=== PATIENT | female | born 1940 | race Caucasian/White ===

== ENCOUNTER 2017-04-18 09:09 | Inpatient (IN) | payer MEDICARE, MEDICAID ==
[~2017-04-18] VITALS: Ht 162.6 cm; Wt 55.0 kg
[~2017-04-18 09:09] MED LIST: ADV50250 IH; ALB0.5UD IH; ALBU8HFA PO; BENA5TAB2 PO; CLOP75TA35 PO; ESCI5TAB PO; FURO-150 PO; POTA10TA19 PO; SPIIN IH
[2017-04-18 09:40] LABS: BASOPHILS % (AUTO) 0.3 % (0-1); EOSINOPHILS % (AUTO) 0.6 % (0-6); HEMATOCRIT 41.6 % (35.0-45.0); LYMPHOCYTES # (AUTO) 0.5 X10'3 (1.1-4.8); LYMPHOCYTES % (AUTO) 9.6 % (21-51); MEAN CORPUSCULAR HEMOGLOBIN 32.2 PG (27.0-31.0); MEAN CORPUSCULAR HGB CONC 33.6 % (33.0-36.5); MEAN CORPUSCULAR VOLUME 96.1 FL (78-98); MEAN PLATELET VOLUME 8.6 FL (7.4-10.4); MONOCYTES # (AUTO) 0.6 X10'3 (0-0.9); MONOCYTES % (AUTO) 10.6 % (2-12); NEUTROPHILS # (AUTO) 4.3 X10'3 (1.8-7.7); NEUTROPHILS % (AUTO) 78.9 % (42-75); PLATELET COUNT 147 X10'3 (140-440); RED BLOOD COUNT 4.33 X10'6 (4.20-5.60); RED CELL DISTRIBUTION WIDTH 14.1 % (11.5-14.5); WHITE BLOOD COUNT 5.5 X10'3 (4.5-11.0)
[2017-04-18] MEDS ORDERED: methylPREDNISolone sod succ 125mg/2ml vial IV ONE (09:45)
[2017-04-18] MEDS ORDERED: furosemide 10 MG/1 ML 10ml inj IV ONE (09:45)
[2017-04-18 09:54] LABS: PARTIAL THROMBOPLASTIN TIME 28 SECONDS (22-32); PROTHROMBIN TIME 10.5 SECONDS (9.0-12.0)
[2017-04-18 10:11] LABS: ALANINE AMINOTRANSFERASE 39 U/L (12-78); ALBUMIN 3.3 G/DL (3.4-5.0); ALBUMIN/GLOBULIN RATIO 0.9 (1.1-1.5); ALKALINE PHOSPHATASE 53 IU/L (46-116); ANION GAP 0 (8-16); ASPARTATE AMINO TRANSFERASE 44 U/L (10-37); BILIRUBIN,TOTAL 0.7 MG/DL (0.1-1.0); BLOOD UREA NITROGEN 8 MG/DL (7-18); CHLORIDE 93 MMOL/L (99-107); GLUCOSE 109 MG/DL (70-104); POTASSIUM 4.6 MMOL/L (3.5-5.1); SODIUM 134 MMOL/L (135-145); TOTAL PROTEIN 6.8 G/DL (6.4-8.2); eGFR > 90 ML/MIN
[2017-04-18 10:14] LABS: TOTAL CARBON DIOXIDE 41.3 MMOL/L (24-32)
[2017-04-18 11:26] LABS: ABG BASE EXCESS 11.2 mmol/L (-2.0-3.0); ABG HCO3 39.9 mmol/L (22.0-26.0); ABG PCO2 (T) 72.8 mmHg (32.0-45.0); ABG PH (T) 7.357 (7.350-7.450); ABG PO2 (T) 82.5 mmHg (83-108); ALLEN'S TEST Positive; FCOHb 0.6 % (0.5-1.5); FLOW 4 L/min; FMetHb 0.1 % (0.3-1.12); FO2Hb 95.3 % (94-100); TOTAL HEMOGLOBIN 14.1 G/dl (12.0-16.0)
[2017-04-18] MEDS ORDERED: magnesium 4gm in 100ml NS 100 ML IV PRN (11:55)
[2017-04-18] MEDS ORDERED: acetaminophen 325mg tablet PO PRN (11:55)
[2017-04-18] MEDS ORDERED: HYDROcodone/acetaminophen 5mg/325mg tablet PO PRN (11:55)
[2017-04-18] MEDS: K and/or MAG REPLACEMENT MC SCH (11:55)
[2017-04-18] MEDS ORDERED: magnesium hydroxide 30ml (MOM) UD suspension PO PRN (11:55)
[2017-04-18] MEDS ORDERED: potassium Cl 40MEQ/NS 500ml 500 ML IV PRN ×2 (11:55)
[2017-04-18] MEDS ORDERED: mag hydrox/Alum hydrox/simeth 30ml oral suspension PO PRN (11:55)
[2017-04-18] MEDS ORDERED: ondansetron/PF 4mg/2ml inj IV PRN (11:55)
[2017-04-18] MEDS ORDERED: magnesium 2GM in 50ml NS 50 ML IV PRN (11:55)
[2017-04-18] MEDS ORDERED: potassium Cl 20 mEq SR tablet PO PRN ×2 (11:55)
[2017-04-18] MEDS ORDERED: guaiFENesin 200 MG/10 ML oral syrup UD cup PO SCH (12:00)
[2017-04-18] MEDS ORDERED: ipratropium/albuterol 3ml nebule IH PRN (12:15)
[2017-04-18] MEDS: levoFLOXACIN 250mg tablet PO SCH (12:29)
[2017-04-18] MEDS ORDERED: albuterol 2.5 MG/3 ML nebule ONE (14:00)
[2017-04-18] MEDS: ipratropium/albuterol 3ml nebule NEB SCH ×3 (14:06→20:55)
[2017-04-18 14:55] VITALS: BP 134/76
[2017-04-18] MEDS: methylPREDNISolone sod succ 125mg/2ml vial IV SCH (16:42)
[2017-04-18 19:30] VITALS: BP 122/83
[2017-04-18] MEDS: guaiFENesin 200 MG/10 ML oral syrup UD cup PO SCH (21:39)
[2017-04-18 23:30] VITALS: BP 134/72
[2017-04-19] MEDS: methylPREDNISolone sod succ 125mg/2ml vial IV SCH ×3 (00:39→16:39)
[2017-04-19 05:56] LABS: BASOPHILS % (AUTO) 0.1 % (0-1); EOSINOPHILS % (AUTO) 0 % (0-6); HEMATOCRIT 43.6 % (35.0-45.0); HEMOGLOBIN 14.6 g/dl (12.0-16.0); LYMPHOCYTES # (AUTO) 0.3 X10'3 (1.1-4.8); LYMPHOCYTES % (AUTO) 11.4 % (21-51); MEAN CORPUSCULAR HEMOGLOBIN 31.9 PG (27.0-31.0); MEAN CORPUSCULAR HGB CONC 33.6 % (33.0-36.5); MEAN CORPUSCULAR VOLUME 95.1 FL (78-98); MEAN PLATELET VOLUME 8.5 FL (7.4-10.4); MONOCYTES # (AUTO) 0.1 X10'3 (0-0.9); MONOCYTES % (AUTO) 3.1 % (2-12); NEUTROPHILS # (AUTO) 2.3 X10'3 (1.8-7.7); NEUTROPHILS % (AUTO) 85.4 % (42-75); PLATELET COUNT 158 X10'3 (140-440); RED BLOOD COUNT 4.59 X10'6 (4.20-5.60); RED CELL DISTRIBUTION WIDTH 13.8 % (11.5-14.5); WHITE BLOOD COUNT 2.7 X10'3 (4.5-11.0)
[2017-04-19 06:24] LABS: ALBUMIN 3.4 G/DL (3.4-5.0); ANION GAP 3 (8-16); BLOOD UREA NITROGEN 12 MG/DL (7-18); CALCIUM 9.4 MG/DL (8.5-10.1); CHLORIDE 90 MMOL/L (99-107); GLUCOSE 131 MG/DL (70-104); MAGNESIUM 1.9 MG/DL (1.5-2.4); SODIUM 134 MMOL/L (135-145); eGFR > 90 ML/MIN
[2017-04-19 06:40] LABS: TOTAL CARBON DIOXIDE 41.5 MMOL/L (24-32)
[2017-04-19] MEDS: ipratropium/albuterol 3ml nebule NEB SCH ×4 (07:11→23:09)
[2017-04-19 07:13] VITALS: BP 148/75
[2017-04-19] MEDS: CITALOpram 10mg tablet PO SCH (08:00)
[2017-04-19] MEDS: guaiFENesin 200 MG/10 ML oral syrup UD cup PO SCH ×3 (08:00→20:53)
[2017-04-19] MEDS ORDERED: potassium chloride 10mEq ER tablet PO SCH ×2 (08:00→08:36)
[2017-04-19] MEDS: K and/or MAG REPLACEMENT MC SCH (08:00)
[2017-04-19] MEDS: clopidogrel 75mg tablet PO SCH (08:44)
[2017-04-19] MEDS: lisinopril 5mg tablet PO SCH (08:45)
[2017-04-19] MEDS: levoFLOXACIN 250mg tablet PO SCH (08:46)
[2017-04-19] MEDS: furosemide 20MG tablet PO SCH (08:47)
[2017-04-19 10:34] LABS: PLATELET ESTIMATE NORMAL; TOTAL CELLS COUNTED 100
[2017-04-19 11:00] VITALS: BP 113/73
[2017-04-19 19:00] VITALS: BP 126/70
[2017-04-19 23:30] VITALS: BP 124/70
[2017-04-20] MEDS: methylPREDNISolone sod succ 125mg/2ml vial IV SCH ×2 (02:38→07:55)
[2017-04-20 06:14] LABS: BASOPHILS % (AUTO) 0 % (0-1); EOSINOPHILS # (AUTO) 0.1 X10'3 (0-0.9); EOSINOPHILS % (AUTO) 1.1 % (0-6); HEMATOCRIT 41.3 % (35.0-45.0); HEMOGLOBIN 13.6 g/dl (12.0-16.0); LYMPHOCYTES # (AUTO) 0.4 X10'3 (1.1-4.8); MEAN CORPUSCULAR HEMOGLOBIN 31.8 PG (27.0-31.0); MEAN CORPUSCULAR VOLUME 96.4 FL (78-98); MONOCYTES # (AUTO) 0.3 X10'3 (0-0.9); MONOCYTES % (AUTO) 4.2 % (2-12); NEUTROPHILS # (AUTO) 6.1 X10'3 (1.8-7.7); NEUTROPHILS % (AUTO) 88.7 % (42-75); PLATELET COUNT 179 X10'3 (140-440); RED BLOOD COUNT 4.28 X10'6 (4.20-5.60); WHITE BLOOD COUNT 6.9 X10'3 (4.5-11.0)
[2017-04-20 06:38] LABS: ALBUMIN 2.9 G/DL (3.4-5.0); ANION GAP -2 (8-16); BLOOD UREA NITROGEN 17 MG/DL (7-18); BUN/CREATININE RATIO 24.3 (6.6-38.0); CALCIUM 9.2 MG/DL (8.5-10.1); CHLORIDE 95 MMOL/L (99-107); GLUCOSE 129 MG/DL (70-104); MAGNESIUM 2.1 MG/DL (1.5-2.4); POTASSIUM 4.5 MMOL/L (3.5-5.1); SODIUM 138 MMOL/L (135-145); eGFR 81 ML/MIN
[2017-04-20] MEDS: ipratropium/albuterol 3ml nebule NEB SCH ×2 (06:51→10:18)
[2017-04-20 07:17] LABS: TOTAL CARBON DIOXIDE 47.3 MMOL/L (24-32)
[2017-04-20 07:30] VITALS: BP 115/69
[2017-04-20] MEDS: lisinopril 5mg tablet PO SCH (07:52)
[2017-04-20] MEDS: clopidogrel 75mg tablet PO SCH (07:52)
[2017-04-20] MEDS: CITALOpram 10mg tablet PO SCH (07:52)
[2017-04-20] MEDS: levoFLOXACIN 250mg tablet PO SCH (07:54)
[2017-04-20] MEDS: furosemide 20MG tablet PO SCH (07:54)
[2017-04-20] MEDS: guaiFENesin 200 MG/10 ML oral syrup UD cup PO SCH ×2 (07:54→13:00)
[2017-04-20] MEDS: K and/or MAG REPLACEMENT MC SCH (08:00)
[2017-04-20 08:31] LABS: ABG BASE EXCESS 16.3 mmol/L (-2.0-3.0); ABG HCO3 44.2 mmol/L (22.0-26.0); ABG OXYGEN SATURATION 89.8 % (95-98); ABG PCO2 (T) 66.3 mmHg (32.0-45.0); ABG PH (T) 7.442 (7.350-7.450); ABG PO2 (T) 56.2 mmHg (83-108); ALLEN'S TEST Positive; FCOHb 0.2 % (0.5-1.5); FLOW 2 L/min; FMetHb 0.2 % (0.3-1.12); FO2Hb 89.4 % (94-100); TOTAL HEMOGLOBIN 15.1 G/dl (12.0-16.0)
[2017-04-20 11:30] VITALS: BP 111/63
[2017-04-20] MEDS ORDERED: PRED10TA23 PO (12:13)
[2017-04-20] MEDS ORDERED: LEVO250T58 PO (12:13)
[2017-04-20] MEDS ORDERED: GUAI100L97 PO (12:13)
[2017-04-20] MEDS ORDERED: lactobacillus rhamnosus 10,000 MMU CELLS/CAPSULE PO SCH (17:30)
== END 2017-04-20 15:43 | disposition home or self-care (01) | DRG 189 ==
LOC: ER 09:09 → ED HOLD 11:51 → EDBEDREQ 13:29 → MED 3N 14:53
PROVIDERS: ADMIT Internal Medicine; ATTEND Internal Medicine
DX: J96.22 Acute and chronic respiratory failure with hypercapnia (principal); J44.1 Chronic obstructive pulmonary disease with (acute) exacerbation; Z99.81 Dependence on supplemental oxygen; I10 Essential (primary) hypertension; I25.10 Atherosclerotic heart disease of native coronary artery without angina pectoris; M19.90 Unspecified osteoarthritis, unspecified site; Z60.2 Problems related to living alone; Z88.2 Allergy status to sulfonamides; Z79.899 Other long term (current) drug therapy; Z87.891 Personal history of nicotine dependence
CPT/HCPCS: 36415; 36600; 71045; 80048; 80053; 82803; 83735; 83880; 84484; 85018; 85025; 85610; 85730; 87070; 87502; 87503; 93005; 94640; 94760; 96374; 96375; 99285; J1940; J2930

== ENCOUNTER 2017-04-30 08:46 | Inpatient (IN) | payer MEDICARE, MEDICAID ==
[~2017-04-30] VITALS: Ht 162.6 cm; Wt 56.8 kg
[~2017-04-30 08:46] MED LIST changes: +GUAI100L97 PO; +LEVO250T58 PO; +PRED10TA23 PO
[2017-04-30] MEDS ORDERED: methylPREDNISolone sod succ 125mg/2ml vial IV ONE (08:50)
[2017-04-30 09:14] LABS: BASOPHILS % (AUTO) 0.1 % (0-1); EOSINOPHILS % (AUTO) 0.2 % (0-6); HEMOGLOBIN 15.6 g/dl (12.0-16.0); LYMPHOCYTES # (AUTO) 0.5 X10'3 (1.1-4.8); LYMPHOCYTES % (AUTO) 2.9 % (21-51); MEAN CORPUSCULAR HGB CONC 33.8 % (33.0-36.5); MEAN CORPUSCULAR VOLUME 94.7 FL (78-98); MEAN PLATELET VOLUME 7.9 FL (7.4-10.4); MONOCYTES # (AUTO) 0.4 X10'3 (0-0.9); MONOCYTES % (AUTO) 2.6 % (2-12); NEUTROPHILS # (AUTO) 16.2 X10'3 (1.8-7.7); NEUTROPHILS % (AUTO) 94.2 % (42-75); PLATELET COUNT 246 X10'3 (140-440); RED BLOOD COUNT 4.86 X10'6 (4.20-5.60); RED CELL DISTRIBUTION WIDTH 14.1 % (11.5-14.5); WHITE BLOOD COUNT 17.2 X10'3 (4.5-11.0)
[2017-04-30 09:25] LABS: PARTIAL THROMBOPLASTIN TIME 24 SECONDS (22-32); PROTHROMBIN TIME 10.8 SECONDS (9.0-12.0)
[2017-04-30 09:37] LABS: ALANINE AMINOTRANSFERASE 27 U/L (12-78); ALBUMIN 3.6 G/DL (3.4-5.0); ALBUMIN/GLOBULIN RATIO 1.1 (1.1-1.5); ALKALINE PHOSPHATASE 58 IU/L (46-116); ANION GAP 7 (8-16); ASPARTATE AMINO TRANSFERASE 27 U/L (10-37); BILIRUBIN,TOTAL 1.4 MG/DL (0.1-1.0); BLOOD UREA NITROGEN 14 MG/DL (7-18); CALCIUM 9.2 MG/DL (8.5-10.1); CHLORIDE 78 MMOL/L (99-107); GLUCOSE 112 MG/DL (70-104); SODIUM 124 MMOL/L (135-145); TOTAL CARBON DIOXIDE 38.7 MMOL/L (24-32); TOTAL PROTEIN 6.9 G/DL (6.4-8.2); eGFR 81 ML/MIN
[2017-04-30] MEDS ORDERED: levoFLOXACIN-Levaquin 750MG/D5 150 ML IV STA (09:48)
[2017-04-30] MEDS ORDERED: normal saline 1000ML IV soln IVB ONE (10:20)
[2017-04-30 11:11] LABS: ABG BASE EXCESS 9.7 mmol/L (-2.0-3.0); ABG HCO3 34.6 mmol/L (22.0-26.0); ABG OXYGEN SATURATION 89.4 % (95-98); ABG PCO2 (T) 46.4 mmHg (32.0-45.0); ABG PO2 (T) 50.5 mmHg (83-108); ALLEN'S TEST Positive; FMetHb 0.2 % (0.3-1.12); FO2Hb 88.3 % (94-100); TOTAL HEMOGLOBIN 16.2 G/dl (12.0-16.0)
[2017-04-30] MEDS ORDERED: morphine 2 MG/ML inj. syringe IV PRN (11:20)
[2017-04-30] MEDS ORDERED: potassium Cl 40MEQ/NS 500ml 500 ML IV PRN ×2 (11:20)
[2017-04-30] MEDS ORDERED: ondansetron/PF 4mg/2ml inj IV PRN (11:20)
[2017-04-30] MEDS ORDERED: magnesium hydroxide 30ml (MOM) UD suspension PO PRN (11:20)
[2017-04-30] MEDS ORDERED: magnesium Cl slow-release 64mg tablet PO PRN (11:20)
[2017-04-30] MEDS ORDERED: HYDROcodone/acetaminophen 5mg/325mg tablet PO PRN (11:20)
[2017-04-30] MEDS ORDERED: morphine 5 MG/ML injection IV PRN ×2 (11:20→13:37)
[2017-04-30] MEDS ORDERED: acetaminophen 325mg tablet PO PRN (11:20)
[2017-04-30] MEDS ORDERED: magnesium 4gm in 100ml NS 100 ML IV PRN (11:20)
[2017-04-30] MEDS ORDERED: potassium Cl 20 mEq SR tablet PO PRN ×2 (11:20)
[2017-04-30] MEDS ORDERED: magnesium 2GM in 50ml NS 50 ML IV PRN (11:20)
[2017-04-30] MEDS ORDERED: mag hydrox/Alum hydrox/simeth 30ml oral suspension PO PRN (11:20)
[2017-04-30] MEDS ORDERED: HYDROcodone/acetaminophen 10/325mg tab PO PRN (11:20)
[2017-04-30] MEDS ORDERED: ipratropium 0.5 MG/2.5ML nebule IH PRN (12:10)
[2017-04-30] MEDS: normal saline 1000ml 1,000 ML IV SCH ×2 (12:57→19:01)
[2017-04-30] MEDS ORDERED: guaiFENesin 200mg/10ml UD cup PO PRN (13:00)
[2017-04-30 13:45] VITALS: BP 137/84
[2017-04-30] MEDS: albuterol 2.5 MG/3 ML nebule NEB PRN (14:39)
[2017-04-30 20:00] VITALS: BP 119/71
[2017-04-30] MEDS: heparin, porcine 5000 units/ml vial SQ SCH (20:28)
[2017-04-30] MEDS ORDERED: temazepam 15mg capsule PO PRN (21:00)
[2017-05-01] VITALS: BP 124/78
[2017-05-01] MEDS: LORazepam 0.5 MG tablet PO PRN ×2 (03:47→10:38)
[2017-05-01] MEDS: albuterol 2.5 MG/3 ML nebule NEB PRN ×2 (04:15→10:10)
[2017-05-01 05:58] LABS: BASOPHILS % (AUTO) 0 % (0-1); EOSINOPHILS # (AUTO) 0.2 X10'3 (0-0.9); EOSINOPHILS % (AUTO) 1.2 % (0-6); HEMATOCRIT 41.3 % (35.0-45.0); LYMPHOCYTES # (AUTO) 0.4 X10'3 (1.1-4.8); LYMPHOCYTES % (AUTO) 2.8 % (21-51); MEAN CORPUSCULAR HEMOGLOBIN 32.3 PG (27.0-31.0); MEAN CORPUSCULAR HGB CONC 33.9 % (33.0-36.5); MEAN CORPUSCULAR VOLUME 95.3 FL (78-98); MEAN PLATELET VOLUME 8.4 FL (7.4-10.4); MONOCYTES # (AUTO) 0.5 X10'3 (0-0.9); MONOCYTES % (AUTO) 3.6 % (2-12); NEUTROPHILS # (AUTO) 12.7 X10'3 (1.8-7.7); NEUTROPHILS % (AUTO) 92.4 % (42-75); PLATELET COUNT 220 X10'3 (140-440); RED BLOOD COUNT 4.34 X10'6 (4.20-5.60); WHITE BLOOD COUNT 13.8 X10'3 (4.5-11.0)
[2017-05-01] MEDS ORDERED: FLU VACC QS2017-18 36MOS UP/PF 60 MCG/0.5 ML SYRINGE IMVAC ONE (06:30)
[2017-05-01 06:31] LABS: ANION GAP 3 (8-16); BLOOD UREA NITROGEN 17 MG/DL (7-18); BUN/CREATININE RATIO 24.3 (6.6-38.0); CALCIUM 8.7 MG/DL (8.5-10.1); CHLORIDE 81 MMOL/L (99-107); GLUCOSE 103 MG/DL (70-104); MAGNESIUM 1.7 MG/DL (1.5-2.4); SODIUM 123 MMOL/L (135-145); TOTAL CARBON DIOXIDE 39.2 MMOL/L (24-32); eGFR 81 ML/MIN
[2017-05-01] MEDS: pantoprazole 40mg Tablet.DR PO SCH (07:30)
[2017-05-01] MEDS ORDERED: furosemide 20MG tablet PO SCH (08:00)
[2017-05-01] MEDS: lisinopril 5mg tablet PO SCH (08:00)
[2017-05-01] MEDS: heparin, porcine 5000 units/ml vial SQ SCH ×2 (08:00→21:42)
[2017-05-01] MEDS: cefTRIAXone 1g/NS 100ml IVPB 100 ML IV SCH (08:00)
[2017-05-01] MEDS: CITALOpram 10mg tablet PO SCH (08:00)
[2017-05-01] MEDS: K and/or MAG REPLACEMENT MC SCH (08:00)
[2017-05-01] MEDS: potassium chloride 10mEq ER tablet PO SCH (08:00)
[2017-05-01] MEDS: clopidogrel 75mg tablet PO SCH (08:00)
[2017-05-01] MEDS ORDERED: CefTRIAXone/D5W-Rocephin 1gm 50 ML IV ONE (09:17)
[2017-05-01 09:40] VITALS: BP 133/93
[2017-05-01] MEDS ORDERED: albuterol 2.5 MG/3 ML nebule NEB SCH (11:00)
[2017-05-01 12:41] VITALS: BP 115/55
[2017-05-01] MEDS: albuterol 2.5 MG/3 ML nebule NEB SCH ×3 (14:23→23:32)
[2017-05-01] MEDS: lactobacillus rhamnosus 10,000 MMU CELLS/CAPSULE PO SCH (16:45)
[2017-05-01] MEDS: hydrOXYzine 25 MG tablet PO SCH (16:45)
[2017-05-01 19:00] VITALS: BP 111/54
[2017-05-01] MEDS: methylPREDNISolone sod succ 125mg/2ml vial IV SCH (21:42)
[2017-05-02] VITALS: BP 102/52
[2017-05-02] MEDS: normal saline 1000ml 1,000 ML IV SCH ×3 (00:07→16:53)
[2017-05-02 04:00] VITALS: BP 100/47
[2017-05-02] MEDS: albuterol 2.5 MG/3 ML nebule NEB SCH ×6 (04:22→23:50)
[2017-05-02 05:35] LABS: BASOPHILS % (AUTO) 0 % (0-1); EOSINOPHILS # (AUTO) 0.2 X10'3 (0-0.9); EOSINOPHILS % (AUTO) 1.9 % (0-6); HEMATOCRIT 38.5 % (35.0-45.0); HEMOGLOBIN 13.1 g/dl (12.0-16.0); LYMPHOCYTES # (AUTO) 0.2 X10'3 (1.1-4.8); LYMPHOCYTES % (AUTO) 1.2 % (21-51); MEAN CORPUSCULAR HEMOGLOBIN 32.4 PG (27.0-31.0); MEAN CORPUSCULAR HGB CONC 34.1 % (33.0-36.5); MEAN CORPUSCULAR VOLUME 95.1 FL (78-98); MEAN PLATELET VOLUME 8.2 FL (7.4-10.4); MONOCYTES % (AUTO) 0.3 % (2-12); NEUTROPHILS # (AUTO) 12.2 X10'3 (1.8-7.7); NEUTROPHILS % (AUTO) 96.6 % (42-75); PLATELET COUNT 211 X10'3 (140-440); RED BLOOD COUNT 4.05 X10'6 (4.20-5.60); WHITE BLOOD COUNT 12.7 X10'3 (4.5-11.0)
[2017-05-02 06:08] LABS: ALBUMIN 2.8 G/DL (3.4-5.0); ANION GAP 5 (8-16); BLOOD UREA NITROGEN 18 MG/DL (7-18); BUN/CREATININE RATIO 22.5 (6.6-38.0); CALCIUM 8.2 MG/DL (8.5-10.1); CHLORIDE 82 MMOL/L (99-107); GLUCOSE 104 MG/DL (70-104); MAGNESIUM 1.7 MG/DL (1.5-2.4); POTASSIUM 4.2 MMOL/L (3.5-5.1); SODIUM 123 MMOL/L (135-145); TOTAL CARBON DIOXIDE 35.8 MMOL/L (24-32); eGFR 70 ML/MIN
[2017-05-02 06:40] VITALS: BP 139/83
[2017-05-02] MEDS: lisinopril 5mg tablet PO SCH (07:46)
[2017-05-02] MEDS: methylPREDNISolone sod succ 125mg/2ml vial IV SCH ×2 (07:46→20:51)
[2017-05-02] MEDS: clopidogrel 75mg tablet PO SCH (07:46)
[2017-05-02] MEDS: pantoprazole 40mg Tablet.DR PO SCH (07:46)
[2017-05-02] MEDS: CITALOpram 10mg tablet PO SCH (07:46)
[2017-05-02] MEDS: cefTRIAXone 1g/NS 100ml IVPB 100 ML IV SCH (07:46)
[2017-05-02] MEDS: lactobacillus rhamnosus 10,000 MMU CELLS/CAPSULE PO SCH ×2 (07:46→16:52)
[2017-05-02] MEDS: potassium chloride 10mEq ER tablet PO SCH (07:46)
[2017-05-02] MEDS: hydrOXYzine 25 MG tablet PO SCH ×3 (07:47→16:00)
[2017-05-02] MEDS: heparin, porcine 5000 units/ml vial SQ SCH ×2 (07:47→20:51)
[2017-05-02] MEDS: K and/or MAG REPLACEMENT MC SCH (07:47)
[2017-05-02 10:50] VITALS: BP 116/55
[2017-05-02] MEDS: montelukast 10mg tablet PO SCH (16:53)
[2017-05-02 18:50] VITALS: BP 126/60
[2017-05-03] VITALS: BP 111/54
[2017-05-03] MEDS: albuterol 2.5 MG/3 ML nebule NEB SCH ×6 (03:53→23:41)
[2017-05-03] MEDS: normal saline 1000ml 1,000 ML IV SCH ×2 (03:57→18:26)
[2017-05-03 06:06] LABS: BASOPHILS % (AUTO) 0.1 % (0-1); EOSINOPHILS # (AUTO) 0.2 X10'3 (0-0.9); HEMATOCRIT 37.1 % (35.0-45.0); HEMOGLOBIN 12.6 g/dl (12.0-16.0); LYMPHOCYTES # (AUTO) 0.1 X10'3 (1.1-4.8); LYMPHOCYTES % (AUTO) 1.1 % (21-51); MEAN CORPUSCULAR HEMOGLOBIN 32.3 PG (27.0-31.0); MEAN CORPUSCULAR HGB CONC 33.9 % (33.0-36.5); MEAN CORPUSCULAR VOLUME 95.4 FL (78-98); MEAN PLATELET VOLUME 8.2 FL (7.4-10.4); MONOCYTES # (AUTO) 0.1 X10'3 (0-0.9); MONOCYTES % (AUTO) 1.1 % (2-12); NEUTROPHILS # (AUTO) 10.1 X10'3 (1.8-7.7); NEUTROPHILS % (AUTO) 95.7 % (42-75); PLATELET COUNT 189 X10'3 (140-440); RED BLOOD COUNT 3.89 X10'6 (4.20-5.60); RED CELL DISTRIBUTION WIDTH 14.6 % (11.5-14.5); WHITE BLOOD COUNT 10.6 X10'3 (4.5-11.0)
[2017-05-03 06:23] LABS: ALBUMIN 2.8 G/DL (3.4-5.0); ANION GAP -2 (8-16); BLOOD UREA NITROGEN 14 MG/DL (7-18); CALCIUM 8.5 MG/DL (8.5-10.1); CHLORIDE 97 MMOL/L (99-107); GLUCOSE 125 MG/DL (70-104); MAGNESIUM 2.2 MG/DL (1.5-2.4); POTASSIUM 4.8 MMOL/L (3.5-5.1); SODIUM 133 MMOL/L (135-145); TOTAL CARBON DIOXIDE 38.1 MMOL/L (24-32); eGFR > 90 ML/MIN
[2017-05-03 06:40] VITALS: BP 112/59
[2017-05-03] MEDS: lactobacillus rhamnosus 10,000 MMU CELLS/CAPSULE PO SCH ×2 (07:19→17:35)
[2017-05-03] MEDS: cefTRIAXone 1g/NS 100ml IVPB 100 ML IV SCH (07:19)
[2017-05-03] MEDS: pantoprazole 40mg Tablet.DR PO SCH (07:19)
[2017-05-03] MEDS: clopidogrel 75mg tablet PO SCH (07:19)
[2017-05-03] MEDS: methylPREDNISolone sod succ 125mg/2ml vial IV SCH ×2 (07:20→19:58)
[2017-05-03] MEDS: potassium chloride 10mEq ER tablet PO SCH (07:20)
[2017-05-03] MEDS: K and/or MAG REPLACEMENT MC SCH (07:20)
[2017-05-03] MEDS: heparin, porcine 5000 units/ml vial SQ SCH ×2 (07:20→19:58)
[2017-05-03] MEDS: montelukast 10mg tablet PO SCH (07:20)
[2017-05-03] MEDS: lisinopril 5mg tablet PO SCH (07:20)
[2017-05-03 11:00] VITALS: BP 135/66
[2017-05-03 19:20] VITALS: BP 119/55
[2017-05-04] MEDS: normal saline 1000ml 1,000 ML IV SCH ×2 (00:56→17:42)
[2017-05-04] MEDS: albuterol 2.5 MG/3 ML nebule NEB SCH ×6 (03:23→23:07)
[2017-05-04 06:07] LABS: BASOPHILS % (AUTO) 0 % (0-1); EOSINOPHILS # (AUTO) 0.2 X10'3 (0-0.9); EOSINOPHILS % (AUTO) 1.8 % (0-6); HEMATOCRIT 36.6 % (35.0-45.0); HEMOGLOBIN 12.3 g/dl (12.0-16.0); LYMPHOCYTES # (AUTO) 0.1 X10'3 (1.1-4.8); MEAN CORPUSCULAR HEMOGLOBIN 32.3 PG (27.0-31.0); MEAN CORPUSCULAR HGB CONC 33.7 % (33.0-36.5); MEAN CORPUSCULAR VOLUME 95.8 FL (78-98); MEAN PLATELET VOLUME 8.4 FL (7.4-10.4); MONOCYTES # (AUTO) 0.2 X10'3 (0-0.9); MONOCYTES % (AUTO) 2.2 % (2-12); NEUTROPHILS # (AUTO) 10.6 X10'3 (1.8-7.7); PLATELET COUNT 171 X10'3 (140-440); RED BLOOD COUNT 3.82 X10'6 (4.20-5.60); RED CELL DISTRIBUTION WIDTH 15.1 % (11.5-14.5); WHITE BLOOD COUNT 11.1 X10'3 (4.5-11.0)
[2017-05-04 06:18] LABS: ALBUMIN 2.7 G/DL (3.4-5.0); ANION GAP -3 (8-16); BLOOD UREA NITROGEN 19 MG/DL (7-18); BUN/CREATININE RATIO 31.7 (6.6-38.0); CALCIUM 8.4 MG/DL (8.5-10.1); CHLORIDE 100 MMOL/L (99-107); GLUCOSE 125 MG/DL (70-104); MAGNESIUM 2.1 MG/DL (1.5-2.4); POTASSIUM 5.4 MMOL/L (3.5-5.1); SODIUM 137 MMOL/L (135-145); TOTAL CARBON DIOXIDE 39.5 MMOL/L (24-32); eGFR > 90 ML/MIN
[2017-05-04] MEDS: potassium chloride 10mEq ER tablet PO SCH (06:43)
[2017-05-04 07:30] VITALS: BP 125/63
[2017-05-04] MEDS: K and/or MAG REPLACEMENT MC SCH (08:00)
[2017-05-04] MEDS: lactobacillus rhamnosus 10,000 MMU CELLS/CAPSULE PO SCH ×2 (08:32→17:42)
[2017-05-04] MEDS: montelukast 10mg tablet PO SCH (08:32)
[2017-05-04] MEDS: clopidogrel 75mg tablet PO SCH (08:32)
[2017-05-04] MEDS: pantoprazole 40mg Tablet.DR PO SCH (08:32)
[2017-05-04] MEDS: heparin, porcine 5000 units/ml vial SQ SCH ×2 (08:33→20:14)
[2017-05-04] MEDS: cefTRIAXone 1g/NS 100ml IVPB 100 ML IV SCH (08:34)
[2017-05-04] MEDS: methylPREDNISolone sod succ 125mg/2ml vial IV SCH ×2 (08:35→20:14)
[2017-05-04 11:00] VITALS: BP 135/60
[2017-05-04 15:10] LABS: ALBUMIN 2.9 G/DL (3.4-5.0); ANION GAP -1 (8-16); BLOOD UREA NITROGEN 19 MG/DL (7-18); BUN/CREATININE RATIO 31.7 (6.6-38.0); CALCIUM 8.4 MG/DL (8.5-10.1); CHLORIDE 99 MMOL/L (99-107); GLUCOSE 169 MG/DL (70-104); POTASSIUM 5.3 MMOL/L (3.5-5.1); SODIUM 136 MMOL/L (135-145); TOTAL CARBON DIOXIDE 38.4 MMOL/L (24-32); eGFR > 90 ML/MIN
[2017-05-04 19:20] VITALS: BP 159/65
[2017-05-05] VITALS: BP 166/101
[2017-05-05] MEDS: albuterol 2.5 MG/3 ML nebule NEB SCH ×4 (02:54→15:00)
[2017-05-05] MEDS: normal saline 1000ml 1,000 ML IV SCH (03:48)
[2017-05-05 06:05] LABS: BASOPHILS % (AUTO) 0 % (0-1); EOSINOPHILS % (AUTO) 0 % (0-6); HEMATOCRIT 42.1 % (35.0-45.0); HEMOGLOBIN 14.4 g/dl (12.0-16.0); LYMPHOCYTES # (AUTO) 0.2 X10'3 (1.1-4.8); LYMPHOCYTES % (AUTO) 1.4 % (21-51); MEAN CORPUSCULAR HEMOGLOBIN 32.8 PG (27.0-31.0); MEAN CORPUSCULAR HGB CONC 34.1 % (33.0-36.5); MEAN CORPUSCULAR VOLUME 96.3 FL (78-98); MEAN PLATELET VOLUME 8.9 FL (7.4-10.4); MONOCYTES # (AUTO) 0.3 X10'3 (0-0.9); MONOCYTES % (AUTO) 2.1 % (2-12); NEUTROPHILS # (AUTO) 12.2 X10'3 (1.8-7.7); NEUTROPHILS % (AUTO) 96.5 % (42-75); PLATELET COUNT 169 X10'3 (140-440); RED BLOOD COUNT 4.38 X10'6 (4.20-5.60); WHITE BLOOD COUNT 12.7 X10'3 (4.5-11.0)
[2017-05-05 06:30] LABS: ALBUMIN 3.2 G/DL (3.4-5.0); ANION GAP 0 (8-16); BLOOD UREA NITROGEN 17 MG/DL (7-18); BUN/CREATININE RATIO 28.3 (6.6-38.0); CALCIUM 8.9 MG/DL (8.5-10.1); CHLORIDE 98 MMOL/L (99-107); GLUCOSE 124 MG/DL (70-104); MAGNESIUM 2.2 MG/DL (1.5-2.4); POTASSIUM 5.2 MMOL/L (3.5-5.1); SODIUM 138 MMOL/L (135-145); TOTAL CARBON DIOXIDE 39.8 MMOL/L (24-32); eGFR > 90 ML/MIN
[2017-05-05 07:00] VITALS: BP 155/92
[2017-05-05] MEDS: K and/or MAG REPLACEMENT MC SCH (08:00)
[2017-05-05] MEDS: clopidogrel 75mg tablet PO SCH (08:23)
[2017-05-05] MEDS: heparin, porcine 5000 units/ml vial SQ SCH ×2 (08:24→19:39)
[2017-05-05] MEDS: methylPREDNISolone sod succ 125mg/2ml vial IV SCH ×2 (08:24→19:38)
[2017-05-05] MEDS: pantoprazole 40mg Tablet.DR PO SCH (08:24)
[2017-05-05] MEDS: montelukast 10mg tablet PO SCH (08:24)
[2017-05-05] MEDS: lactobacillus rhamnosus 10,000 MMU CELLS/CAPSULE PO SCH ×2 (08:24→17:05)
[2017-05-05] MEDS: cefTRIAXone 1g/NS 100ml IVPB 100 ML IV SCH (08:34)
[2017-05-05 11:32] VITALS: BP 147/83
[2017-05-05] MEDS ORDERED: CefTRIAXone 1 gm/50ml D5W ADV 50 ML IV SCH (12:11)
[2017-05-05] MEDS: LORazepam 0.5 MG tablet PO PRN (17:05)
[2017-05-05] MEDS ORDERED: ipratropium/albuterol 3ml nebule NEB SCH (19:00)
[2017-05-05] MEDS: metoprolol tartrate 25mg tablet PO SCH (19:39)
[2017-05-05 20:00] VITALS: BP 119/65
[2017-05-05] MEDS: levalbuterol 0.63mg/3ml nebule IH SCH (20:19)
[2017-05-05] MEDS: ipratropium 0.5 MG/2.5ML nebule IH SCH (20:19)
[2017-05-05 23:30] VITALS: BP 136/64
[2017-05-06] MEDS: levalbuterol 0.63mg/3ml nebule IH SCH ×2 (02:45→08:09)
[2017-05-06] MEDS: ipratropium 0.5 MG/2.5ML nebule IH SCH ×2 (02:45→08:11)
[2017-05-06 06:03] LABS: BASOPHILS % (AUTO) 0.1 % (0-1); EOSINOPHILS # (AUTO) 0.1 X10'3 (0-0.9); EOSINOPHILS % (AUTO) 1.1 % (0-6); HEMATOCRIT 37.4 % (35.0-45.0); HEMOGLOBIN 12.8 g/dl (12.0-16.0); LYMPHOCYTES # (AUTO) 0.2 X10'3 (1.1-4.8); MEAN CORPUSCULAR HEMOGLOBIN 32.2 PG (27.0-31.0); MEAN CORPUSCULAR HGB CONC 34.2 % (33.0-36.5); MEAN CORPUSCULAR VOLUME 94.2 FL (78-98); MEAN PLATELET VOLUME 8.5 FL (7.4-10.4); MONOCYTES # (AUTO) 0.4 X10'3 (0-0.9); NEUTROPHILS # (AUTO) 7.3 X10'3 (1.8-7.7); NEUTROPHILS % (AUTO) 90.8 % (42-75); PLATELET COUNT 142 X10'3 (140-440); RED BLOOD COUNT 3.97 X10'6 (4.20-5.60); RED CELL DISTRIBUTION WIDTH 14.7 % (11.5-14.5)
[2017-05-06 06:48] LABS: ALANINE AMINOTRANSFERASE 34 U/L (12-78); ALBUMIN 2.8 G/DL (3.4-5.0); ALKALINE PHOSPHATASE 50 IU/L (46-116); ANION GAP 1 (8-16); ASPARTATE AMINO TRANSFERASE 18 U/L (10-37); BILIRUBIN,TOTAL 0.6 MG/DL (0.1-1.0); BLOOD UREA NITROGEN 19 MG/DL (7-18); BUN/CREATININE RATIO 34.5 (6.6-38.0); CALCIUM 8.4 MG/DL (8.5-10.1); CHLORIDE 97 MMOL/L (99-107); CREATININE 0.55 MG/DL (0.40-0.90); GLUCOSE 98 MG/DL (70-104); MAGNESIUM 2.2 MG/DL (1.5-2.4); POTASSIUM 4.8 MMOL/L (3.5-5.1); SODIUM 140 MMOL/L (135-145); TOTAL PROTEIN 5.5 G/DL (6.4-8.2); eGFR > 90 ML/MIN
[2017-05-06 06:58] LABS: TOTAL CARBON DIOXIDE 42.3 MMOL/L (24-32)
[2017-05-06] MEDS: methylPREDNISolone sod succ 125mg/2ml vial IV SCH (07:22)
[2017-05-06] MEDS: metoprolol tartrate 25mg tablet PO SCH (07:23)
[2017-05-06] MEDS: clopidogrel 75mg tablet PO SCH (07:23)
[2017-05-06] MEDS: pantoprazole 40mg Tablet.DR PO SCH (07:23)
[2017-05-06] MEDS: lactobacillus rhamnosus 10,000 MMU CELLS/CAPSULE PO SCH (07:23)
[2017-05-06] MEDS: heparin, porcine 5000 units/ml vial SQ SCH (07:23)
[2017-05-06] MEDS: montelukast 10mg tablet PO SCH (07:23)
[2017-05-06 08:00] VITALS: BP 138/72
[2017-05-06] MEDS: K and/or MAG REPLACEMENT MC SCH (08:00)
[2017-05-06] MEDS ORDERED: LEVA0.6319 IH (11:16)
[2017-05-06] MEDS ORDERED: PRED20TA PO (11:16)
[2017-05-06] MEDS ORDERED: ATR0.5NEB IH (11:16)
[2017-05-06] MEDS ORDERED: MONT10TA24 PO (11:16)
[2017-05-06] MEDS ORDERED: ATI0.5T PO (11:16)
[2017-05-06 13:15] VITALS: BP 142/73
== END 2017-05-06 13:15 | DRG 189 ==
LOC: ER 08:46 → ED HOLD 10:50 → EDBEDREQ 11:54 → SUR 3N 13:35
PROVIDERS: ADMIT Internal Medicine; ATTEND Family Medicine
PROC: 5A09357 Assistance with Respiratory Ventilation, Less than 24 Consecutive Hours, Continuous Positive Airway Pressure (ICD-10-PCS; principal; 2017-04-30)
DX: J96.20 Acute and chronic respiratory failure, unspecified whether with hypoxia or hypercapnia (principal); I47.2 Ventricular tachycardia; E87.5 Hyperkalemia; E87.1 Hypo-osmolality and hyponatremia; I48.92 Unspecified atrial flutter; J44.1 Chronic obstructive pulmonary disease with (acute) exacerbation; M19.90 Unspecified osteoarthritis, unspecified site; D72.829 Elevated white blood cell count, unspecified; F32.9 Major depressive disorder, single episode, unspecified; F41.9 Anxiety disorder, unspecified; I25.10 Atherosclerotic heart disease of native coronary artery without angina pectoris; E86.0 Dehydration; T38.0X5A Adverse effect of glucocorticoids and synthetic analogues, initial encounter; I49.3 Ventricular premature depolarization; Z88.2 Allergy status to sulfonamides; Z79.02 Long term (current) use of antithrombotics/antiplatelets; Z79.899 Other long term (current) drug therapy; Z87.891 Personal history of nicotine dependence; Z23 Encounter for immunization; Y92.89 Other specified places as the place of occurrence of the external cause
CPT/HCPCS: 36415; 36600; 71045; 80048; 80053; 82803; 83605; 83735; 83880; 84484; 85018; 85025; 85610; 85730; 87040; 87070; 87502; 87503; 93005; 94640; 94660; 94760; 96374; 97110; 97116; 97161; 97530; 99291; J0696; J1644; J1956; J2930; J7030; J7614; Q0177

== ENCOUNTER 2021-01-22 14:45 | Inpatient (IN) | payer OTHER, MEDICAID ==
[~2021-01-22] VITALS: Ht 162.6 cm; Wt 54.0 kg
[~2021-01-22 14:45] MED LIST changes: -ALB0.5UD IH; -ALBU8HFA PO; +ATI0.5T PO; +ATR0.5NEB IH; -BENA5TAB2 PO; +CLOP75TA34 PO; -CLOP75TA35 PO; +LEVA0.6319 IH; -LEVO250T58 PO; +MONT-40 PO; -POTA10TA19 PO; -PRED10TA23 PO
[2021-01-22] MEDS ORDERED: normal saline 1000ML IV soln IVB ONE (15:35)
[2021-01-22] MEDS ORDERED: LORazepam 0.5 MG tablet PO PRN (16:15)
[2021-01-22 16:29] LABS: ALANINE AMINOTRANSFERASE 31 U/L (12-78); ALBUMIN 2.5 G/DL (3.4-5.0); ALBUMIN/GLOBULIN RATIO 0.7 (1.1-1.5); ALKALINE PHOSPHATASE 59 IU/L (46-116); ANION GAP 2 (8-16); ASPARTATE AMINO TRANSFERASE 23 U/L (10-37); BILIRUBIN,TOTAL 0.4 MG/DL (0.1-1.0); BLOOD UREA NITROGEN 25 MG/DL (7-18); CALCIUM 8.1 MG/DL (8.5-10.1); CHLORIDE 101 MMOL/L (99-107); GLUCOSE 96 MG/DL (70-104); POTASSIUM 4.7 MMOL/L (3.5-5.1); SODIUM 141 MMOL/L (135-145); TOTAL CARBON DIOXIDE 38.2 MMOL/L (24-32); TOTAL PROTEIN 5.9 G/DL (6.4-8.2); eGFR 53 ML/MIN
[2021-01-22 16:31] LABS: BASOPHILS # (AUTO) 0.1 X10'3 (0-0.2); BASOPHILS % (AUTO) 0.9 % (0-1); EOSINOPHILS # (AUTO) 0.1 X10'3 (0-0.9); EOSINOPHILS % (AUTO) 0.8 % (0-6); HEMOGLOBIN 15.2 g/dl (12.0-16.0); LYMPHOCYTES # (AUTO) 0.6 X10'3 (1.1-4.8); LYMPHOCYTES % (AUTO) 9.9 % (21-51); MEAN CORPUSCULAR HEMOGLOBIN 33.6 PG (27.0-31.0); MEAN CORPUSCULAR HGB CONC 33.7 g/dL (33.0-36.5); MEAN CORPUSCULAR VOLUME 99.5 FL (78-98); MEAN PLATELET VOLUME 8.4 FL (7.4-10.4); MONOCYTES # (AUTO) 0.6 X10'3 (0-0.9); MONOCYTES % (AUTO) 8.9 % (2-12); NEUTROPHILS # (AUTO) 5.2 X10'3 (1.8-7.7); NEUTROPHILS % (AUTO) 79.5 % (42-75); PLATELET COUNT 187 X10'3 (140-440); RED BLOOD COUNT 4.52 X10'6 (4.20-5.60); WHITE BLOOD COUNT 6.6 X10'3 (4.5-11.0)
[2021-01-22 16:41] LABS: MAGNESIUM 1.6 MG/DL (1.5-2.4)
[2021-01-22] MEDS ORDERED: furosemide 40mg/4ml inj IV ONE (17:10)
[2021-01-22] MEDS ORDERED: CLOB30CR11 TP (18:06)
[2021-01-22] MEDS ORDERED: ALBU2.5V10 NEB (18:06)
[2021-01-22] MEDS ORDERED: POTA8CAP20 PO (18:06)
[2021-01-22] MEDS ORDERED: ALBU17AE26 IH (18:06)
[2021-01-22] MEDS ORDERED: [UNRECOGNIZED DRUG - CODE] TP (18:06)
[2021-01-22] MEDS ORDERED: BENA5TAB39 PO (18:06)
[2021-01-22] MEDS ORDERED: TIOT4MIS5 INH (18:06)
--- NOTE | 2021-01-22 19:30 | NUR ---
PT PLACED IN ROOM 14. ASSUMED CARE OF PT. PT SITTING AT 90 DEGREES, NC O2 RUNNING AT 2L AND SATTING AT 94%, AFIB ON MONITOR, PT EATING AND SPEAKING IN FULL SENTENCES TO ME, IV ACCESS EVALUATED AND DETERMINED TO BE PATENT, PT HAS NO COMPLAINTS OTHER THAN SOB AND BILATERAL LOWER EXTREMITY EDEMA. SHE NOTES THAT SHE IS USUALLY ON 2L OF O2 AT HOME AND TAKES LASIX PILLS.
[2021-01-22] MEDS ORDERED: methylPREDNISolone sod succ 125mg/2ml vial IV ONE (19:55)
[2021-01-22] MEDS ORDERED: CefTRIAXone/D5W-Rocephin 1gm 50 ML IV ONE (19:55)
[2021-01-22] MEDS ORDERED: azithromycin/NS 500mg/250ml 250 ML IV ONE (19:55)
[2021-01-22] MEDS ORDERED: bisacodyl 10mg suppository rectal RC PRN (20:00)
[2021-01-22] MEDS ORDERED: non-formulary drug (Albuterol 2 PUFF) IH PRN (20:00)
[2021-01-22] MEDS ORDERED: ipratropium/albuterol 3ml nebule NEB PRN (20:00)
[2021-01-22] MEDS ORDERED: acetaminophen 650mg rectal suppository RC PRN (20:00)
[2021-01-22] MEDS ORDERED: albuterol 2.5 MG/3 ML nebule NEB PRN (20:00)
[2021-01-22] MEDS ORDERED: magnesium hydroxide 30ml (MOM) UD suspension PO PRN (20:00)
[2021-01-22] MEDS ORDERED: acetaminophen 325mg tablet PO PRN (20:00)
[2021-01-22] MEDS ORDERED: ondansetron 4mg rapidly disintigrating tab PO PRN (20:00)
[2021-01-22] MEDS ORDERED: diphenhydrAMINE 25mg capsule PO PRN (20:00)
[2021-01-22] MEDS ORDERED: diphenhydrAMINE 50 mg/ml inj IV PRN (20:00)
[2021-01-22] MEDS ORDERED: HYDROcodone/acetaminophen 5mg/325mg tablet PO PRN (20:00)
[2021-01-22] MEDS ORDERED: ondansetron/PF 4mg/2ml inj IV PRN (20:00)
[2021-01-22] MEDS ORDERED: HYDROcodone/acetaminophen 10/325mg tab PO PRN (20:00)
[2021-01-22] MEDS ORDERED: morphine 2 MG/ML inj. syringe IV PRN ×2 (20:00)
[2021-01-22] MEDS ORDERED: mag hydrox/Alum hydrox/simeth 30ml oral suspension PO PRN (20:00)
[2021-01-22 20:24] LABS: HEMOGLOBIN A1C 5.7 % (4.5-6.2)
[2021-01-22 20:27] LABS: PHOSPHORUS 3.2 MG/DL (2.3-4.5)
[2021-01-22] MEDS: ipratropium/albuterol 3ml nebule NEB SCH (20:47)
[2021-01-22] MEDS ORDERED: temazepam 15mg capsule PO PRN (21:00)
[2021-01-22 21:10] LABS: D-DIMER 7.51 MG/L FEU (0-0.50); PARTIAL THROMBOPLASTIN TIME 28 SECONDS (22-32)
[2021-01-22 21:11] LABS: UA COLLECTION TYPE NON-SPECIFIED
[2021-01-22 21:12] LABS: CLARITY,URINE CLEAR (Clear); COLOR,URINE YELLOW (Yellow); GLUCOSE, URINE NEGATIVE (Neg); KETONES,URINE NEGATIVE (Neg); LEUKOCYTE ESTERASE ,URINE NEGATIVE (Neg); NITRITES, URINE NEGATIVE (Neg); OCCULT BLOOD,URINE NEGATIVE (Neg); PROTEIN,URINE TRACE mg/dl (Neg); UROBILINOGEN,URINE 0.2 E.U/dL (0.2-1.0)
[2021-01-22 21:13] LABS: MUCUS STRANDS FEW /LPF (Neg); SQUAMOUS EPITHELIAL CELL,UR MODERATE /LPF (FEW)
[2021-01-22 21:14] LABS: BACTERIA,URINE FEW /HPF (Neg); RBC,URINE 0-2 /HPF (0-2)
[2021-01-22 21:15] LABS: WBC,URINE 0-4 /HPF (0-4)
[2021-01-22] MEDS: docusate sod 100mg capsule PO SCH (22:08)
--- NOTE | 2021-01-22 22:30 | NUR ---
RN CALLED TO GIVE REPORT. RN BUSY. WILL ATTEMPT TO REACH LATER
--- NOTE | 2021-01-22 22:54 | NUR ---
PLACED ON HOLD. UNABLE TO REACH RN. WILL ATTEMPT TO GIVE REPORT LATER.
[2021-01-23] MEDS: ipratropium/albuterol 3ml nebule NEB SCH ×4 (00:24→11:30)
--- NOTE | 2021-01-23 01:45 | NUR ---
Received pt in bed deeply asleep. RN stated that pt received sleeping medication before being transported to the floor. Stable vital signs noted; continue to monitor pt.
[2021-01-23 01:48] VITALS: BP 107/53
[2021-01-23 03:20] VITALS: BP 102/71
[2021-01-23 03:58] LABS: BASOPHILS % (AUTO) 0.2 % (0-1); EOSINOPHILS % (AUTO) 0 % (0-6); HEMATOCRIT 47.9 % (35.0-45.0); LYMPHOCYTES # (AUTO) 0.2 X10'3 (1.1-4.8); LYMPHOCYTES % (AUTO) 3.4 % (21-51); MEAN CORPUSCULAR HEMOGLOBIN 33.3 PG (27.0-31.0); MEAN CORPUSCULAR HGB CONC 33.4 g/dL (33.0-36.5); MEAN CORPUSCULAR VOLUME 99.7 FL (78-98); MEAN PLATELET VOLUME 8.3 FL (7.4-10.4); MONOCYTES # (AUTO) 0.1 X10'3 (0-0.9); MONOCYTES % (AUTO) 0.9 % (2-12); NEUTROPHILS # (AUTO) 6.8 X10'3 (1.8-7.7); NEUTROPHILS % (AUTO) 95.5 % (42-75); PLATELET COUNT 185 X10'3 (140-440); RED CELL DISTRIBUTION WIDTH 16.5 % (11.5-14.5); WHITE BLOOD COUNT 7.1 X10'3 (4.5-11.0)
[2021-01-23 04:15] LABS: ALANINE AMINOTRANSFERASE 30 U/L (12-78); ALBUMIN/GLOBULIN RATIO 0.8 (1.1-1.5); ALKALINE PHOSPHATASE 61 IU/L (46-116); ANION GAP 2 (8-16); ASPARTATE AMINO TRANSFERASE 25 U/L (10-37); BILIRUBIN,TOTAL 0.5 MG/DL (0.1-1.0); BLOOD UREA NITROGEN 23 MG/DL (7-18); BUN/CREATININE RATIO 22.5 (6.6-38.0); CALCIUM 8.2 MG/DL (8.5-10.1); CHLORIDE 101 MMOL/L (99-107); CREATININE 1.02 MG/DL (0.40-0.90); GLUCOSE 134 MG/DL (70-104); POTASSIUM 4.3 MMOL/L (3.5-5.1); SODIUM 143 MMOL/L (135-145); TOTAL CARBON DIOXIDE 39.8 MMOL/L (24-32); TOTAL PROTEIN 6.8 G/DL (6.4-8.2); eGFR 52 ML/MIN
[2021-01-23 04:24] LABS: CHOL/HDL RATIO 2.5 (0.00-4.99); CHOLESTEROL 148 MG/DL (0-200); HDL CHOLESTEROL 59 MG/DL (35-60); LDL CHOLESTEROL 79 MG/DL (50-100); TRIGLYCERIDES 53 MG/DL (20-135)
--- NOTE | 2021-01-23 05:18 | NUR ---
Pt still deeply sleeping, arousal to strong stimuli, Pt assessment was done , lab collected and sent, Vitals stable
[2021-01-23 06:00] VITALS: BP 109/57
--- NOTE | 2021-01-23 06:51 | NUR ---
Patient in room PCU 3025. I have received report from GERARDO ROSADO, and had the opportunity to ask questions and assume patient care.
[2021-01-23] MEDS ORDERED: pantoprazole 40mg Tablet.DR PO SCH (07:30)
[2021-01-23] MEDS ORDERED: clopidogrel 75mg tablet PO SCH (08:00)
[2021-01-23] MEDS ORDERED: azithromycin/NS 500mg/250ml 250 ML IV SCH (08:00)
[2021-01-23] MEDS ORDERED: CefTRIAXone/D5W-Rocephin 1gm 50 ML IV SCH (08:00)
[2021-01-23] MEDS ORDERED: nitroGLYCERIN 0.2mg/hour patch TD SCH (08:00)
[2021-01-23] MEDS ORDERED: furosemide 20 MG/2 ML vial IV SCH (08:00)
[2021-01-23] MEDS ORDERED: atorvastatin 10mg tablet PO SCH (08:00)
[2021-01-23] MEDS ORDERED: carVEDilol 3.125mg tablet PO SCH (08:00)
[2021-01-23] MEDS ORDERED: lisinopril 5mg tablet PO SCH (08:00)
[2021-01-23] MEDS: docusate sod 100mg capsule PO SCH (08:21)
[2021-01-23 08:22] VITALS: BP_SYST 109
[2021-01-23] MEDS ORDERED: aspirin 81mg tab.chew PO SCH (08:30)
--- NOTE | 2021-01-23 11:31 | NUR ---
PAGE SENT PAGER ID: [phone] MESSAGE: [id number], BRITNEY REED, PT AMBULATES WELL, WITHOUT ASSISTANCE. PT AGREEABLE TO HOME HELP. THANK YOU, NICOLE [phone]
[2021-01-23] MEDS ORDERED: FURO-150 PO (11:41)
--- NOTE | 2021-01-23 15:18 | NUR ---
PT STABLE FOR DISCHARGE PER MD. DISCHARGE AND FOLLOW UP INSTRUCTIONS REVIEWED WITH PT, APPROPRIATE PAPERWORK SIGNED. PT DISCHARGED TO HOME. PT AGREED TO HOME HEALTH CARE SUGGESTED BY MD. PT TRANSPORTED TO PRIVATE VEHICLE BY HOSPITAL STAFF.
== END 2021-01-23 14:59 | disposition home health service (06) | DRG 189 ==
LOC: ER 14:46 → ED HOLD 20:07 → PCU 3S 01-23 01:10
PROVIDERS: ADMIT Family Medicine; ATTEND Internal Medicine
DX: J96.20 Acute and chronic respiratory failure, unspecified whether with hypoxia or hypercapnia (principal); I21.A1 Myocardial infarction type 2; I50.33 Acute on chronic diastolic (congestive) heart failure; I13.0 Hypertensive heart and chronic kidney disease with heart failure and stage 1 through stage 4 chronic kidney disease, or unspecified chronic kidney disease; J44.1 Chronic obstructive pulmonary disease with (acute) exacerbation; N17.9 Acute kidney failure, unspecified; J96.10 Chronic respiratory failure, unspecified whether with hypoxia or hypercapnia; Z20.822 Contact with and (suspected) exposure to COVID-19; I49.3 Ventricular premature depolarization; I50.813 Acute on chronic right heart failure; M19.90 Unspecified osteoarthritis, unspecified site; I25.10 Atherosclerotic heart disease of native coronary artery without angina pectoris; N18.9 Chronic kidney disease, unspecified; Z99.81 Dependence on supplemental oxygen; Z88.2 Allergy status to sulfonamides; Z79.02 Long term (current) use of antithrombotics/antiplatelets; Z79.899 Other long term (current) drug therapy
CPT/HCPCS: 36415; 71045; 80053; 80061; 81001; 83036; 83605; 83735; 83880; 84100; 84145; 84443; 84484; 85025; 85379; 85610; 85730; 87040; 87081; 87635; 93005; 93306; 94640; 94760; 96374; 99285; C9803; G0378; J0456; J0696; J1940; J2930

== ENCOUNTER 2021-01-26 08:59 | Emergency (ER) | payer OTHER, MEDICAID ==
[~2021-01-26] VITALS: Ht 162.6 cm; Wt 65.0 kg
[~2021-01-26 08:59] MED LIST changes: -ADV50250 IH; +ALBU17AE26 IH; +ALBU2.5V10 NEB; -ATI0.5T PO; -ATR0.5NEB IH; +BENA5TAB39 PO; +CLOB30CR11 TP; -ESCI5TAB PO; -GUAI100L97 PO; -LEVA0.6319 IH; -MONT-40 PO; +POTA8CAP20 PO; -SPIIN IH; +TIOT4MIS5 INH; +[UNRECOGNIZED DRUG - CODE] TP
[2021-01-26] MEDS ORDERED: furosemide 20MG tablet PO ONE (13:00)
[2021-01-26 13:02] LABS: BASOPHILS % (AUTO) 0.6 % (0-1); EOSINOPHILS % (AUTO) 0.3 % (0-6); HEMOGLOBIN 15.5 g/dl (12.0-16.0); LYMPHOCYTES # (AUTO) 0.6 X10'3 (1.1-4.8); MEAN CORPUSCULAR HEMOGLOBIN 33.1 PG (27.0-31.0); MEAN CORPUSCULAR HGB CONC 33.1 g/dL (33.0-36.5); MEAN CORPUSCULAR VOLUME 100.1 FL (78-98); MEAN PLATELET VOLUME 8.1 FL (7.4-10.4); MONOCYTES # (AUTO) 0.4 X10'3 (0-0.9); MONOCYTES % (AUTO) 5.8 % (2-12); NEUTROPHILS # (AUTO) 5.4 X10'3 (1.8-7.7); NEUTROPHILS % (AUTO) 84.3 % (42-75); PLATELET COUNT 175 X10'3 (140-440); RED BLOOD COUNT 4.69 X10'6 (4.20-5.60); WHITE BLOOD COUNT 6.4 X10'3 (4.5-11.0)
[2021-01-26 13:23] LABS: ALANINE AMINOTRANSFERASE 29 U/L (12-78); ALBUMIN 2.9 G/DL (3.4-5.0); ALBUMIN/GLOBULIN RATIO 0.9 (1.1-1.5); ALKALINE PHOSPHATASE 64 IU/L (46-116); ANION GAP -3 (8-16); ASPARTATE AMINO TRANSFERASE 25 U/L (10-37); BILIRUBIN,TOTAL 0.8 MG/DL (0.1-1.0); BLOOD UREA NITROGEN 19 MG/DL (7-18); BUN/CREATININE RATIO 24.1 (6.6-38.0); CALCIUM 8.2 MG/DL (8.5-10.1); CHLORIDE 101 MMOL/L (99-107); CREATININE 0.79 MG/DL (0.40-0.90); GLUCOSE 137 MG/DL (70-104); POTASSIUM 3.9 MMOL/L (3.5-5.1); SODIUM 142 MMOL/L (135-145); eGFR 70 ML/MIN
[2021-01-26 13:25] LABS: TOTAL CARBON DIOXIDE 43.6 MMOL/L (24-32)
[2021-01-26 14:50] LABS: ABG BASE EXCESS 12.8 mmol/L (-2.0-2.0); ABG HCO3 41.7 mmol/L (22.0-26.0); ABG OXYGEN SATURATION 95.5 % (94-97); ABG PCO2 (T) 71.1 mmHg (32.0-45.0); ABG PO2 (T) 77.6 mmHg (75.0-100.0); ALLEN'S TEST POSITIVE; FCOHb 1.5 % (0.0-3.9); FLOW 3 L/min; FMetHb 0.2 % (0.0-1.5); FO2Hb 93.9 % (94-97); TOTAL HEMOGLOBIN 15.9 G/dl (12.0-16.0)
[2021-01-26] MEDS ORDERED: FURO-150 PO (14:55)
== END 2021-01-26 15:25 | disposition home or self-care (01) ==
LOC: ER 09:00
DX: R60.0 Localized edema (principal); R06.02 Shortness of breath; R06.00 Dyspnea, unspecified; Z88.2 Allergy status to sulfonamides; J44.1 Chronic obstructive pulmonary disease with (acute) exacerbation; Z88.8 Allergy status to other drugs, medicaments and biological substances; Z79.899 Other long term (current) drug therapy
CPT/HCPCS: 36415; 36600; 71045; 80053; 82803; 83880; 85018; 85025; 94760; 99284

== ENCOUNTER 2021-03-20 17:27 | Emergency (ER) | payer OTHER, MEDICAID ==
[~2021-03-20] VITALS: Ht 165.1 cm; Wt 50.0 kg
[2021-03-20] MEDS ORDERED: LORazepam 2 mg/ml vial IV ONE (18:35)
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
[2021-03-20 18:59] LABS: ABG BASE EXCESS 9.5 mmol/L (-2.0-2.0); ABG HCO3 38.5 mmol/L (22.0-26.0); ABG OXYGEN SATURATION 87.1 % (94-97); ABG PCO2 (T) 70.8 mmHg (32.0-45.0); ABG PO2 (T) 52.9 mmHg (75.0-100.0); ALLEN'S TEST POSITIVE; FLOW 2 L/min; FMetHb 0.2 % (0.0-1.5); FO2Hb 86.1 % (94-97); PATIENT TEMPERATURE 36.9; TOTAL HEMOGLOBIN 15.5 G/dl (12.0-16.0)
--- NOTE | 2021-03-20 19:05 | NUR ---
PATIENT BACK IN BED CALM AND COOPERATIVE - NOTIFIED RADIOLOGY PATIENT IS READY FOR XRAY.
[2021-03-20 19:11] LABS: BASOPHILS # (AUTO) 0.1 X10'3 (0-0.2); EOSINOPHILS # (AUTO) 0.1 X10'3 (0-0.9); EOSINOPHILS % (AUTO) 1.1 % (0-6); HEMOGLOBIN 14.9 g/dl (12.0-16.0); LYMPHOCYTES % (AUTO) 18.2 % (21-51); MEAN CORPUSCULAR HEMOGLOBIN 33.2 PG (27.0-31.0); MEAN CORPUSCULAR HGB CONC 33.8 g/dL (33.0-36.5); MEAN CORPUSCULAR VOLUME 98.1 FL (78-98); MONOCYTES # (AUTO) 0.5 X10'3 (0-0.9); MONOCYTES % (AUTO) 9.1 % (2-12); NEUTROPHILS # (AUTO) 3.8 X10'3 (1.8-7.7); NEUTROPHILS % (AUTO) 70.6 % (42-75); PLATELET COUNT 133 X10'3 (140-440); RED BLOOD COUNT 4.49 X10'6 (4.20-5.60); RED CELL DISTRIBUTION WIDTH 15.4 % (11.5-14.5); WHITE BLOOD COUNT 5.4 X10'3 (4.5-11.0)
[2021-03-20 19:32] LABS: ALANINE AMINOTRANSFERASE 22 U/L (12-78); ALBUMIN 3.6 G/DL (3.4-5.0); ALBUMIN/GLOBULIN RATIO 1.1 (1.1-1.5); ALKALINE PHOSPHATASE 59 IU/L (46-116); ANION GAP 8 (8-16); ASPARTATE AMINO TRANSFERASE 25 U/L (10-37); BILIRUBIN,TOTAL 0.4 MG/DL (0.1-1.0); BLOOD UREA NITROGEN 21 MG/DL (7-18); BUN/CREATININE RATIO 26.6 (6.6-38.0); CALCIUM 8.7 MG/DL (8.5-10.1); CHLORIDE 102 MMOL/L (99-107); CREATININE 0.79 MG/DL (0.40-0.90); GLUCOSE 101 MG/DL (70-104); SODIUM 144 MMOL/L (135-145); TOTAL CARBON DIOXIDE 34.5 MMOL/L (24-32); TOTAL PROTEIN 6.8 G/DL (6.4-8.2); eGFR 70 ML/MIN
[2021-03-20 19:35] LABS: MAGNESIUM 2.2 MG/DL (1.5-2.4)
[2021-03-20 19:37] LABS: POTASSIUM 4.6 MMOL/L (3.5-5.1)
[2021-03-20] MEDS ORDERED: furosemide 10 MG/1 ML 10ml inj IV ONE (20:10)
[2021-03-21] MEDS ORDERED: albuterol 2.5 MG/3 ML nebule NEB ONE (07:25)
--- NOTE | 2021-03-21 08:37 | NUR ---
pt ambulated to restroom with 2l o2 without complications or increased sob. pt stated she feels good and would like to go home. dr romero aware.
[2021-03-21 09:27] VITALS: BP 140/79
== END 2021-03-21 09:31 | disposition home or self-care (01) ==
LOC: ER 17:28
DX: J44.1 Chronic obstructive pulmonary disease with (acute) exacerbation (principal); R06.02 Shortness of breath; I49.9 Cardiac arrhythmia, unspecified; M19.90 Unspecified osteoarthritis, unspecified site; Z72.89 Other problems related to lifestyle; Z88.2 Allergy status to sulfonamides; Z79.899 Other long term (current) drug therapy
CPT/HCPCS: 36415; 36600; 71045; 80053; 82803; 83735; 83880; 84145; 84484; 85018; 85025; 93005; 94640; 96374; 96375; 99285; J1940; J2060; 94760